=== PATIENT | female | born 1995 | race Caucasian/White ===

== ENCOUNTER 2017-02-10 07:01 | Inpatient (IN) | payer MEDICAID ==
[~2017-02-10] VITALS: Ht 157.5 cm; Wt 50.0 kg
[2017-02-10] MEDS ORDERED: SODIUM CHLORIDE 0.9% 1,000ML IVBOLUS ONE (07:30)
[2017-02-10] MEDS ORDERED: SODIUM CHLORIDE FLUSH 10ML SYR IVF ONE (07:30)
[2017-02-10] MEDS ORDERED: ONDANSETRON 2MG/ML, 2ML IVPush ONE ×2 (07:30→16:00)
[2017-02-10] MEDS ORDERED: MORPHINE SULFATE 4 MG/ML, 1ML ONE ×3 (07:55→10:26)
[2017-02-10] MEDS ORDERED: ONDANSETRON 2MG/ML, 2ML ONE ×3 (07:55→11:36)
[2017-02-10] MEDS: MORPHINE SULFATE 4 MG/ML, 1ML IVPush PRN ×2 (07:57→08:27)
[2017-02-10 08:10] LABS: BLOOD UREA NITROGEN 5 mg/dL (7-18)
[2017-02-10 08:16] LABS: ASPARTATE AMINO TRANSFERASE 24 U/L (15-37)
[2017-02-10] MEDS ORDERED: SODIUM CHLORIDE 0.9% 1,000 ML IV ONE (09:56)
[2017-02-10] MEDS ORDERED: ONDANSETRON 2MG/ML, 2ML IVPush PRN (10:00)
[2017-02-10] MEDS ORDERED: MORPHINE SULFATE 4 MG/ML, 1ML IVPush PRN (10:00)
[2017-02-10] MEDS ORDERED: FENTANYL PF 250 MCG/5ML ONE (11:34)
[2017-02-10] MEDS ORDERED: MIDAZOLAM 1 MG/ML, 2ML ONE (11:34)
[2017-02-10] MEDS ORDERED: KETOROLAC 30 MG/1 ML ONE (11:36)
[2017-02-10] MEDS ORDERED: DEXAMETHASONE 4 MG/ML, 1ML ONE (11:36)
[2017-02-10] MEDS ORDERED: PROPOFOL 10 MG/ML, 20ML ONE (11:36)
[2017-02-10] MEDS ORDERED: BUPIVACAINE/PF-EPI 0.25% 1:200K ONE (11:36)
[2017-02-10] MEDS ORDERED: ROCURONIUM 10 MG/ML ONE (11:36)
[2017-02-10] MEDS ORDERED: SILVER NITRATE STICK TP ONE (11:36)
[2017-02-10] MEDS ORDERED: FENTANYL PF 100 MCG/2ML IV PRN ×2 (12:00→15:00)
[2017-02-10] MEDS ORDERED: HYDROmorphone 1 MG/ML, 1ML IV PRN (12:00)
[2017-02-10] MEDS ORDERED: ACETAMINOPHEN 325 MG TABLET PO PRN (12:00)
[2017-02-10] MEDS ORDERED: MEPERIDINE/PF 25MG/0.5ML IVPush PRN (12:00)
[2017-02-10] MEDS ORDERED: OXYcodone 5 MG/5 ML ORAL.SOL UDC PO PRN (12:00)
[2017-02-10] MEDS ORDERED: THROMBIN 5,000 UNIT VIAL TP ONE (12:37)
[2017-02-10] MEDS ORDERED: FENTANYL PF 100 MCG/2ML ONE (13:00)
[2017-02-10] MEDS ORDERED: ACETAMINOPHEN 650 MG/20.3 ML UDC ONE (13:19)
[2017-02-10] MEDS ORDERED: OXYcodone 5 MG/5 ML ORAL.SOL UDC ONE (13:19)
[2017-02-10] MEDS ORDERED: ACETAMINOPHEN 325 MG TABLET ONE (13:19)
[2017-02-10] MEDS ORDERED: KETOROLAC 30 MG/1 ML IV PRN (15:00)
[2017-02-10] MEDS ORDERED: OXYcodone/APAP 5/325MG TABLET PO PRN (15:00)
[2017-02-10] MEDS ORDERED: PROMETHAZINE 25 MG/ML, 1ML IM PRN (18:30)
[2017-02-10 19:30] VITALS: BP 105/59
[2017-02-10] MEDS ORDERED: HYDR-3240 PO (22:09)
[2017-02-10] MEDS ORDERED: IBUP200T48 PO (22:10)
== END 2017-02-10 23:10 | disposition home or self-care (01) | DRG 777 ==
LOC: ED 07:50 → EDIP 09:57 → 4NOR 14:39
PROVIDERS: ADMIT Student in an Organized Health Care Education/Training Program; ATTEND Student in an Organized Health Care Education/Training Program
PROC: 0W3R4ZZ Control Bleeding in Genitourinary Tract, Percutaneous Endoscopic Approach (ICD-10-PCS; 2017-02-10)
PROC: 0W9G4ZZ Drainage of Peritoneal Cavity, Percutaneous Endoscopic Approach (ICD-10-PCS; principal; 2017-02-10 11:00)
DX: O00.90 Unspecified ectopic pregnancy without intrauterine pregnancy (principal); K66.1 Hemoperitoneum; O99.619 Diseases of the digestive system complicating pregnancy, unspecified trimester; F12.90 Cannabis use, unspecified, uncomplicated; Z83.3 Family history of diabetes mellitus
CPT/HCPCS: 36415; 71020; 76801; 80053; 81003; 83690; 84702; 84703; 85025; 85379; 86850; 86900; 88305; 93005; 96361; 96374; 96375; 96376; J1100; J1885; J2250; J2405; J2550; J2704; J3010; J7030

== ENCOUNTER 2017-02-22 11:58 | Emergency (ER) | payer SELFPAY ==
[~2017-02-22] VITALS: Ht 157.5 cm; Wt 48.9 kg
[~2017-02-22 11:58] MED LIST: HYDR-3240 PO; IBUP200T48 PO
[2017-02-22] MEDS ORDERED: SODIUM CHLORIDE 0.9% 1,000ML IVBOLUS ONE (12:30)
[2017-02-22] MEDS ORDERED: SODIUM CHLORIDE FLUSH 10ML SYR IVF ONE (12:30)
[2017-02-22 12:43] LABS: BLOOD UREA NITROGEN 7 mg/dL (7-18)
[2017-02-22 13:45] VITALS: BP 118/76
== END 2017-02-22 13:59 | disposition home or self-care (01) ==
LOC: ED 12:14
DX: O03.4 Incomplete spontaneous abortion without complication (principal)
CPT/HCPCS: 36415; 76830; 80048; 82040; 84702; 85025